=== PATIENT | female | born 1955 | race African-American/Black ===

== ENCOUNTER → 2017-12-15 | Outpatient (CLI) | payer OTHER ==
--- NOTE | 2017-12-24 12:20 | CON ---
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 HISTORY OF PRESENT ILLNESS: The patient is a 62-year-old woman who developed a right-sided tongue lesion that was noted in April 2017. The patient was given several rounds of antibiotics and the lesion did not resolve. The patient then had a biopsy of this lesion on 11/10/2017 of the right lateral tongue and the pathology revealed an invasive moderately differentiated squamous cell carcinoma. The patient also then went on to undergo a CT scan of the neck that was done on 11/17/2017, which revealed a tongue mass that measured about 4.6 cm. On 11/29/2017, the patient underwent a right hemiglossectomy, limited pharyngectomy, right modified radical neck dissection, tracheostomy, left radial forearm free flap, pharyngoplasty, and complex vestibuloplasty with the skin graft to arm and that was done by Dr. Hamilton. The pathology revealed a moderately differentiated squamous cell carcinoma. The greatest dimension was 3.67 cm. The total dimensions were 3.6 cm. x 2.8 cm. x 1.8 cm. There was tumor extension into skeletal muscle. The margins were not involved by invasive cancer. The closest margin was about 1 mm from the surgical margin. Twenty four lymph nodes were all resected. None of the lymph nodes were involved with cancer. The patient had perineural invasion. The patient had a PET/CT scan on 11/17/2017, which revealed a hypermetabolic right tongue lesion consistent with a primary malignancy of the right tonsillar pillar. The patient was then discussed at the multidisciplinary head and neck cancer conference and they recommended postoperative radiation therapy. The patient presents to be considered for radiation therapy. She is taking her nutrition through her gastric tube that was placed on 12/05/2017. PAST MEDICAL HISTORY AND PAST SURGICAL HISTORY: The patient has a history of [place] [address] CONSULTATION Name: FATIMAH MATHEWS Room: [facility]#: [id number] Admission: 12/15/17 Attend Phys: Praful Christina MD Discharge: Date of : 53 Report #: [id number] MEDICATIONS: Include 1 mg/mL oxycodone solution 5-10 mL every 6 hours as needed for pain control as well as Mucomyst, Fosamax, vitamin D, lorazepam as needed, Pamelor, and Senokot. ALLERGIES: FISH CONTAINING PRODUCTS, SHELLFISH AND SULFA. OBSTETRICS AND GYNECOLOGY: She is 3, para 3, menarche at age 11, menopause at 29 years of age. FAMILY HISTORY: Mother had hypertension. SOCIAL HISTORY: The patient is retired. She is . She has 3 daughters. Ethanol: She does not drink alcohol containing beverages. Cigarettes: She quit smoking on 11/14/2017. She smoked 1 pack per day for about 40 years. REVIEW OF SYSTEMS: GENERAL: She denied having any fevers or chills. SKIN: She denied any color changes. LYMPH NODES: She denied having any enlarged or painful glands in the neck. ENDOCRINE: She denied having any hot or cold intolerance. HEMATOLOGY/IMMUNOLOGY: The patient denied having any recent bleeding. MUSCULOSKELETAL: She denied having any painful swollen joints. HEAD AND NECK: She denied having any headaches or migraines. RESPIRATORY: She denied having any shortness of breath. CARDIOVASCULAR: She denied having any palpitations. GASTROINTESTINAL: She denied having nausea or vomiting. NEUROLOGIC: She denied having any focal weakness. PHYSICAL EXAMINATION: VITAL SIGNS: Height 5 feet 8 inches, weight 110.2 pounds, blood pressure 137/74, pulse 107, respirations 20, oxygen saturation 100%. LYMPH NODES: She had no cervical or supraclavicular lymphadenopathy. EYES: Pupils were equal, round, reactive to light and accommodation. HEAD, EARS, NOSE AND THROAT: Mouth: She has a resected portion of the tongue on the right side that appears to be healing well and she has a tracheostomy in place. She does have her lower teeth intact. HEART: Had a regular rate and rhythm without murmur. LUNGS: were clear to auscultation. ABDOMEN: Had a gastric tube intact. Liver was at the costal margin. Spleen was not palpable. NEUROLOGIC: Cranial nerves II to XIIwere intact. Sensation was intact. She had 5/5 strength in her extremities. LABORATORY DATA: From 12/04/2017, hemoglobin 9.2, platelets 182,000. Sodium 138, potassium 3.7, creatinine 0.55. ASSESSMENT AND PLAN: The patient has a resected squamous cell carcinoma of the tongue with high risk features consisting of perineural invasion. The patient was offered postoperative radiation therapy. It is high [place] [address] CONSULTATION Name: FATIMAH MATHEWS Room: [facility]#: [id number] Admission: 12/15/17 Attend Phys: Praful Christina MD Discharge: Date of : 53 Report #: [id number] such as the one entitled "perineural invasions squamous cell carcinoma in the oral cavity, histology, tumor stage, and outcome" which was published in laryngoscope and the authors was Dr. Bennett. After primary surgical treatment, recurrence free survival rates were 47% if there was a perineural invasion versus 80.4% for a matched control groups. Because of the increased risk of local recurrence with surgical recurrence alone, the patient was offered radiation therapy. The patient is a good candidate for intensity modulated radiation therapy. The risks, benefits, logistics of radiation therapy were explained to the patient in detail. She gave her witnessed, informed consent to proceed with radiation therapy. She will be referred to her dentist to evaluate her dentition prior to starting her radiation therapy. She was encouraged to keep up her nutritional intake. Thank you very much for this consult. <ELECTRONICALLY SIGNED> By: Praful Christina MD 12/24/17 1220 [id number] Christina MD /nt
== END ==
LOC: M.RTH 02:35
DX: Z51.0 Encounter for antineoplastic radiation therapy (principal); C02.9 Malignant neoplasm of tongue, unspecified

== ENCOUNTER → 2018-03-14 | Outpatient (CLI) | payer OTHER ==
--- NOTE | 2018-03-24 14:46 | ONC ---
[address] [address] RADIATION ONCOLOGY NOTE Name: FATIMAH MATHEWS Room: [facility]#: [id number] Admission: 03/14/18 Attend Phys: Praful Christina MD Discharge: Date of : 53 Report #: [id number] THIS REPORT FOR: //name// CC: Praful Hamilton MD DATE OF SERVICE: 03/14/2018 REFERRING PHYSICIANS: Rod Hamilton MD as well as Dr. Marco Antonio Arroyo. [facility] phone is [phone]. PRIMARY SITE AND HISTOPATHOLOGY: The patient underwent resection of an oral tongue cancer, which was a T3N0M0 oral tongue cancer and there was perineural invasion. The patient then received postoperative radiation therapy, and the radiation therapy was completed on 03/02/2018. INTERVAL NOTE: She is still taking most of her nutrition through her gastric tube. She takes about 3 supplements through the gastric tube per day. She is still taking liquid hydrocodone about once a day. She has been using viscous lidocaine with Calendula cream for skin care. MEDICATIONS: Zofran as needed, Tylenol as needed, hydrocodone as needed, MiraLax, lorazepam and viscous lidocaine with Calendula cream for skin care. REVIEW OF SYSTEMS: RESPIRATORY: She was not short of breath. GASTROINTESTINAL: She does have some white spots on her tongue, and she is only taking sips of water. Otherwise, she is getting all her nutrition through the gastric tube. She was interested in possibly seeing if she still needed to have the tracheostomy tube in. PHYSICAL EXAMINATION: VITAL SIGNS: The patient weighed 116.6 pounds on 03/14/2018. She was 110.2 pounds on 12/15/2017. On 03/14/2018, blood pressure was 131/79, pulse 102, respirations 18, oxygen saturation was 95% on room air. LYMPH NODES: No cervical or supraclavicular lymphadenopathy. SKIN: Had mild hyperpigmentation as expected after radiation therapy. HEAD, EYES, EARS, NOSE AND THROAT: Mouth had some white discoloration on the tongue consistent with oral candidiasis. The tracheostomy tube was intact. Tongue had no suspicious visible lesions or suspicious palpable lesions. HEART: Had a regular rate and rhythm with no murmur. LUNGS: were clear to auscultation. ABDOMEN: [place] [address] RADIATION ONCOLOGY NOTE Name: FATIMAH MATHEWS Room: [facility]#: [id number] Admission: 03/14/18 Attend Phys: Praful Christina MD Discharge: Date of : 53 Report #: [id number] LABORATORY DATA: From 03/09/2018, hemoglobin 12.7, platelets 336,000, white blood cells 6.2. Sodium 133, potassium 4.0, BUN 17, creatinine 0.72. ASSESSMENT AND PLAN: 1. History of tongue cancer- There is no evidence of tongue cancer at this time. The patient will be referred to her ear, nose and throat physician, Dr. Hamilton, for continued follow up. A complete blood count, basic metabolic and TSH level as well as a neck CT will be ordered in about a month and the patient will be asked to schedule a follow up appointment with me afterwards. 2. Nutrition- The patient wants Dr. Hamilton to see if the tracheostomy tube can be decreased in size and then she thinks she will be able to take more nutrition by mouth. Right now, she is taking sips of water by mouth, and she is gaining weight with the nutritional supplements she is taking through the gastric tube. 3. Oral candidiasis- The patient was prescribed fluconazole for oral candidiasis. 4. Pain control- The patient feels like her pain is much better, though she thinks she will probably continue to need hydrocodone in the near future. She was given a refill for liquid hydrocodone at this time. 5. Skin care- The patient applies Calendula cream with lidocaine for skin care. Thank you for allowing me to participate in the care of this patient. <ELECTRONICALLY SIGNED> By: Praful Christina MD 03/24/18 1446 [id number] 2021Dtony Christina MD /nt
== END ==
LOC: M.RTH 03:01
DX: Z08 Encounter for follow-up examination after completed treatment for malignant neoplasm (principal); B37.0 Candidal stomatitis; Z85.810 Personal history of malignant neoplasm of tongue; Z79.899 Other long term (current) drug therapy